=== PATIENT | female | born 1955 | race Caucasian/White ===

== ENCOUNTER 2020-04-26 18:29 | Emergency (ER) | payer MEDICAID, SELFPAY ==
[~2020-04-26] VITALS: Ht 144.8 cm; Wt 73.9 kg
[2020-04-26 18:41] VITALS: Ht 144.8 cm; Wt 73.9 kg
[2020-04-26 20:56] VITALS: BP 163/89
== END 2020-04-26 20:56 | disposition home or self-care (01) ==
LOC: ED 18:29
DX: U07.1 COVID-19 (principal); Z88.5 Allergy status to narcotic agent
CPT/HCPCS: U0003-CS